=== PATIENT | male | born 1965 | race Caucasian/White ===

== ENCOUNTER 2023-02-13 13:29 | Emergency (ER) | payer SELFPAY ==
[~2023-02-13] VITALS: Ht 182.9 cm; Wt 77.0 kg
[2023-02-13 13:35] VITALS: O2SAT 100
[2023-02-13] MEDS ORDERED: DICYCLOMINE 10 MG/5 ML ORAL SYR PO STA (13:38)
[2023-02-13] MEDS ORDERED: VISCOUS LIDOCAINE 2% 15 ML UDC PO STA (13:38)
[2023-02-13] MEDS ORDERED: MAGNESIUM/ALUMINUM HYDROXIDE/SIMETHICONE 30ML UDC PO STA (13:38)
[2023-02-13 14:11] LABS: BASOPHILS % 0.7 % (0.0-2.0); EOSINOPHILS % 2.5 % (0.0-5.0); HEMATOCRIT. 34.8 % (42.0-52.0); HEMOGLOBIN. 11.5 g/dL (14.0-18.0); LYMPHOCYTES % 33.7 % (20.0-50.0); MEAN CORPUSCULAR HEMOGLOBIN 30.4 pg (28.0-32.0); MEAN CORPUSCULAR VOLUME 91.7 fL (80.0-94.0); MEAN PLATELET VOLUME 8.1 fl (7.4-10.4); MONOCYTES % 6.4 % (2.0-8.0); NEUTROPHILS % 56.7 % (40.0-76.0); PLATELET 204 x1000/uL (130-400); RED BLOOD CELL COUNT 3.79 mill/uL (4.7-6.1); RED CELL DISTRIBUTION WIDTH 18.7 % (11.6-14.6)
[2023-02-13] MEDS ORDERED: DICYCLOMINE HCL 10MG CAPSULE PO NR (14:15)
[2023-02-13 14:20] LABS: CHLORIDE 104 mEq/L (98-107)
[2023-02-13 14:29] LABS: ETHANOL BLOOD 299 mg/dL (-10)
[2023-02-13] MEDS ORDERED: SODIUM CHLORIDE 0.9% 1,000 ML IV ONE (15:00)
[2023-02-13] MEDS ORDERED: MAGNESIUM/ALUMINUM HYDROXIDE/SIMETHICONE 30ML UDC PO NR (16:15)
[2023-02-13 21:10] VITALS: BP 121/70; PULSE 65; RESP 16; TEMP 98.2
== END 2023-02-13 21:16 | disposition home or self-care (01) ==
LOC: ER 13:29
DX: F10.229 Alcohol dependence with intoxication, unspecified (principal); Y90.4 Blood alcohol level of 80-99 mg/100 ml; I10 Essential (primary) hypertension; N17.9 Acute kidney failure, unspecified
CPT/HCPCS: 80053; 80320; 83690; 85025; 36415; 96360; 96361; 99284; Z7610; G0480